=== PATIENT | male | born 1965 | race Caucasian/White ===

== ENCOUNTER 2022-05-31 15:01 | Emergency (ER) | payer OTHER, SELFPAY ==
--- NOTE | ~2022-05-31 | XR_ITS ---
EXAMINATION: XR FEMUR, LEFT CLINICAL INFORMATION: Recent fracture, increased weakness and discomfort. COMPARISON: None TECHNIQUE: AP and lateral views of the left femur were obtained. FINDINGS: Intramedullary nail in the left femur with 2 distal horizontally oriented screws and 2 proximal obliquely oriented screws. No evidence of hardware failure. No periprosthetic fracture. No acute fracture or malalignment. Scattered vascular calcifications. Moderate degenerative osteophytes arthritis of the left hip. Mild to moderate tricompartmental degenerative osteoarthritis in the left knee. No joint effusion in the left knee. No unexpected radiopaque foreign bodies. XR/XR femur LT 2V IMPRESSION: 1. Intramedullary nail in the left femur without evidence of hardware failure or periprosthetic fracture. 2. No acute fracture or malalignment.
--- NOTE | ~2022-05-31 | US_ITS ---
EXAMINATION: US VENOUS ULTRASOUND WITH DOPPLER LOWER EXTREMITY, LEFT CLINICAL INFORMATION: Pain, weakness COMPARISON: None TECHNIQUE: Ultrasound of the deep veins is performed from the hip to the calf with compression sonography and color and pulse Doppler assessment. Spectral analysis with color-flow imaging is performed. FINDINGS: There is normal venous compression and respiratory variation and augmented flow. The visualized common femoral vein, superficial femoral vein, profunda femoral vein, popliteal vein, and the trifurcation region shows no evidence of deep venous thrombosis. There is no significant popliteal fossa cyst. . If the patient's symptoms persist, followup ultrasound in 5 days 7 days might be of value to exclude proximal propagation from a non-visualized calf vein. US/US venous duplex LE LT IMPRESSION: No DVT demonstrated in the left lower extremity.
[2022-05-31 16:01] VITALS: BP 139/91; PULSE 134; RESP 20; TEMP 37.1; O2SAT 97; BMI 19.8
--- NOTE | 2022-05-31 16:01 | ED.EXTPRO ---
HPI - Extremity Problem General Chief complaint: Extremity Injury, Lower <Xena Hernandez CNP - Last Filed: 05/31/22 17:28> Stated complaint: l leg issue difficulty walking <Xena Hernandez CNP - Last Filed: 05/31/22 17:28> Time Seen by Provider: 05/31/22 21:17 <Xena Hernandez CNP - Last Filed: 05/31/22 17:28> Source: patient <Cookie Markham MD - Last Filed: 05/31/22 22:06> Mode of arrival: ambulatory <Cookie Markham MD - Last Filed: 05/31/22 22:06> History of Present Illness HPI Narrative: 57-year-old male with a history of left femur fracture that occurred approximately 6 months ago and now over the past 2-3 days states that he has been having some difficulty on ambulation with his cane which he uses at baseline. He denies any associated fever, chills. <Cookie Markham MD - Last Filed: 05/31/22 22:06> Related Data Allergies/Adverse reactions: Allergies Allergy/AdvReac Type Severity Reaction Status Date / Time No Known Allergies Allergy Verified 05/31/22 16:08 <Xena Hernandez CNP - Last Filed: 05/31/22 17:28> Review of Systems Review of Systems: Pertinent positives and negatives as stated in HPI <Cookie Markham MD - Last Filed: 05/31/22 22:06> PMFSH Past Medical History Source: nursing notes reviewed <Cookie Markham MD - Last Filed: 05/31/22 22:06> Medical History: Medical History Broken femur <Xena Hernandez CNP - Last Filed: 05/31/22 17:28> Social History Social History: Social History Alcohol intake: current Alcohol intake frequency: a few times a week Alcohol type: beer Smoked in Last 30 Days: Yes Use of substances other than those prescribed or required for medical reasons: No Advance Directives: No Advance Directives Information Provided: No <Xena Hernandez CNP - Last Filed: 05/31/22 17:28> Physical Exam Vital Signs: Vital Signs: Last Vital Signs Temp 98.6 F 05/31/22 20:00 Pulse 98 05/31/22 20:00 Resp 16 05/31/22 20:00 BP 134/80 05/31/22 20:00 Pulse Ox 97 05/31/22 20:00 O2 Del Method 05/31/22 20:00 BMI result Body Mass Index 19.8 <Xena HernandezMICHELLE - Last Filed: 05/31/22 17:28> Vital Signs: Last Vital Signs Temp 98.6 F 05/31/22 20:00 Pulse 98 05/31/22 20:00 Resp 16 05/31/22 20:00 BP 134/80 05/31/22 20:00 Pulse Ox 97 05/31/22 20:00 O2 Del Method 05/31/22 20:00 BMI result Body Mass Index 19.8 VITAL SIGNS: Reviewed. GENERAL: Well developed, well nourished, in no acute distress. HEAD: Normocephalic/atraumatic EYES: PERRLA, EOMI LUNGS: Normal breath sounds. No adventitious sounds or accessory muscle use. SpO2<97> CARDIOVASCULAR: Regular rate and rhythm without noted murmurs ABDOMEN: Soft, non-tender, non-distended with bowel sounds. MUSCULOSKELETAL: No tenderness, deformities, or effusions noted on gross inspection. EXTREMITIES: No cyanosis, clubbing or edema. LLE: No erythema, no induration, no swelling, neurovascularly intact distal SKIN: Inspection of the skin reveals no rashes NEUROLOGIC: Alert and oriented x 4. Strength and sensation to light touch were grossly intact x 4. <Cookie Markham MD - Last Filed: 05/31/22 22:06> Course Course Course Narrative: This is an RME: Additional HPI, ROS, PE not included below will be deferred to primary provider. Reports over the past 2 days he has been having increasing weakness to the leg, shakiness, unsteady gait, feeling like the leg is going to give out, despite the use of a cane. He states that his leg feels uncomfortable, but is not particularly painful. He denies any recent injury or fall. Reports a femur fracture approximately 6 months ago requiring surgical repair which at [facility] after mechanical slip and fall on the ice. He states he was able to begin walking on it again approximately 2 months ago. Denies any chest pain, shortness of breath, dizziness, swelling to the leg, redness. Denies any anxiety. Denies daily EtOH usage. Denies hx DVt/PE, AC usage. PE: Tachycardic, 130s. 2+ DP/PT pulse bilaterally, no edema, no erythema Plan: Labs, EKG, D-dimer, XR imaging. 1730: XR no acute abnormalities, D-dimer elevated, will ovtain venous duplex US exlude DVT given symptoms and tachycardia <Xena Hernandez CNP - Last Filed: 05/31/22 17:28> Medical Decision Making Medical Decision Making MDM Narrative: 57-year-old male with difficulty with his left lower extremity and on review of all investigations my interpretation is that there is no evidence of acute infection at although there is an elevated D-dimer the venous duplex is without acute findings. There is no evidence of cellulitis or thrombophlebitis. I have noted patient's platelet count, however on my examination there was no evidence of petechiae or purpura. In addition, on initial presentation patient was noted to be tachycardic but otherwise hemodynamically stable with good oxygenation and tachycardia has completely resolved. <Cookie Markham MD - Last Filed: 05/31/22 22:06> Differential Diagnosis Please see the discussion above <Cookie Markham MD - Last Filed: 05/31/22 22:06> Lab Data Please see the discussion above <Cookie Markham MD - Last Filed: 05/31/22 22:06> Result Diagrams: 05/31/22 17:04 05/31/22 17:04 <Xena Hernandez CNP - Last Filed: 05/31/22 17:28> Labs: Lab Results 05/31/22 05/31/22 05/31/22 Range/Units 17:04 17:04 17:04 WBC 6.8 (4.8-10.8) X10*3/uL RBC 4.75 (4.60-5.80) X10*6/uL Hgb 14.7 (14.0-18.0) g/dl Hct 43.4 (42.0-52.0) % MCV 91.4 (80.0-98.0) fL MCH 30.9 (27.0-33.0) pg MCHC 33.9 (31.0-36.0) g/dl RDW 14.8 (11.0-16.0) % Plt Count 67 L (160-400) X10*3/uL MPV 10.4 (9.4-12.4) fL Immature Gran % (Auto) 0.3 (0.0-0.4) % Neut % (Auto) 69.9 (45-73) % Lymph % (Auto) 24.2 (20-40) % [place] % (Auto) 4.2 (2-11) % Eos % (Auto) 0.7 (0-4) % Baso % (Auto) 0.7 (0-2) % Lymph # (Auto) 1.7 (1.2-4.9) X10*3/uL [place] # (Auto) 0.3 (0.1-1.2) X10*3/uL Eos # (Auto) 0.1 (0.0-0.4) X10*3/uL Baso # (Auto) 0.1 (0.0-0.2) X10*3/uL Abs Immat Gran (auto) 0.02 (0.00-0.03) X10*3/uL Absolute Neuts (auto) 4.8 (2.0-8.3) x10*3/uL Absolute Nucleated RBC 0.000 (0.0-0.012) X10*3/uL Nucleated RBC % (auto) 0.0 (0.0-0.2) /100WBC Smear Tech's Comments VERIFIED D-Dimer High Sensitivty 273 NG/ML Sodium 139 (135-145) mmol/L Potassium 3.9 (3.3-5.1) mmol/L Chloride 105 (96-108) mmol/L Carbon Dioxide 20 L (22-29) mmol/L Anion Gap 18 (12-20) BUN 9 (9-16) mg/dL Creatinine 0.84 (0.5-1.4) mg/dL Estim Creat Clear Calc 81.8 Estimated GFR > 60 Random Glucose 102 (60-115) mg/dL Calcium 8.9 (8.4-10.2) mg/dL Total Bilirubin 0.4 (0.0-1.0) mg/dL AST 33 (5-37) U/L ALT 23 (0-40) U/L Alkaline Phosphatase 84 (39-117) U/L Troponin I High Sens (<3.5-35.0) ng/L Total Protein 8.2 H (6.5-8.0) g/dL Albumin 4.2 (3.5-5.0) g/dL 05/31/22 Range/Units 17:04 WBC (4.8-10.8) X10*3/uL RBC (4.60-5.80) X10*6/uL Hgb (14.0-18.0) g/dl Hct (42.0-52.0) % MCV (80.0-98.0) fL MCH (27.0-33.0) pg MCHC (31.0-36.0) g/dl RDW (11.0-16.0) % Plt Count (160-400) X10*3/uL MPV (9.4-12.4) fL Immature Gran % (Auto) (0.0-0.4) % Neut % (Auto) (45-73) % Lymph % (Auto) (20-40) % [place] % (Auto) (2-11) % Eos % (Auto) (0-4) % Baso % (Auto) (0-2) % Lymph # (Auto) (1.2-4.9) X10*3/uL [place] # (Auto) (0.1-1.2) X10*3/uL Eos # (Auto) (0.0-0.4) X10*3/uL Baso # (Auto) (0.0-0.2) X10*3/uL Abs Immat Gran (auto) (0.00-0.03) X10*3/uL Absolute Neuts (auto) (2.0-8.3) x10*3/uL Absolute Nucleated RBC (0.0-0.012) X10*3/uL Nucleated RBC % (auto) (0.0-0.2) /100WBC Smear Tech's Comments D-Dimer High Sensitivty NG/ML Sodium (135-145) mmol/L Potassium (3.3-5.1) mmol/L Chloride (96-108) mmol/L Carbon Dioxide (22-29) mmol/L Anion Gap (12-20) BUN (9-16) mg/dL Creatinine (0.5-1.4) mg/dL Estim Creat Clear Calc Estimated GFR Random Glucose (60-115) mg/dL Calcium (8.4-10.2) mg/dL Total Bilirubin (0.0-1.0) mg/dL AST (5-37) U/L ALT (0-40) U/L Alkaline Phosphatase (39-117) U/L Troponin I High Sens 4.6 (<3.5-35.0) ng/L Total Protein (6.5-8.0) g/dL Albumin (3.5-5.0) g/dL <Xena Hernandez, INVERFORM MACHINE OPERATOR - Last Filed: 05/31/22 17:28> Lab Results 05/31/22 05/31/22 05/31/22 Range/Units 17:04 17:04 17:04 WBC 6.8 (4.8-10.8) X10*3/uL RBC 4.75 (4.60-5.80) X10*6/uL Hgb 14.7 (14.0-18.0) g/dl Hct 43.4 (42.0-52.0) % MCV 91.4 (80.0-98.0) fL MCH 30.9 (27.0-33.0) pg MCHC 33.9 (31.0-36.0) g/dl RDW 14.8 (11.0-16.0) % Plt Count 67 L (160-400) X10*3/uL MPV 10.4 (9.4-12.4) fL Immature Gran % (Auto) 0.3 (0.0-0.4) % Neut % (Auto) 69.9 (45-73) % Lymph % (Auto) 24.2 (20-40) % [place] % (Auto) 4.2 (2-11) % Eos % (Auto) 0.7 (0-4) % Baso % (Auto) 0.7 (0-2) % Lymph # (Auto) 1.7 (1.2-4.9) X10*3/uL [place] # (Auto) 0.3 (0.1-1.2) X10*3/uL Eos # (Auto) 0.1 (0.0-0.4) X10*3/uL Baso # (Auto) 0.1 (0.0-0.2) X10*3/uL Abs Immat Gran (auto) 0.02 (0.00-0.03) X10*3/uL Absolute Neuts (auto) 4.8 (2.0-8.3) x10*3/uL Absolute Nucleated RBC 0.000 (0.0-0.012) X10*3/uL Nucleated RBC % (auto) 0.0 (0.0-0.2) /100WBC Smear Tech's Comments VERIFIED D-Dimer High Sensitivty 273 NG/ML Sodium 139 (135-145) mmol/L Potassium 3.9 (3.3-5.1) mmol/L Chloride 105 (96-108) mmol/L Carbon Dioxide 20 L (22-29) mmol/L Anion Gap 18 (12-20) BUN 9 (9-16) mg/dL Creatinine 0.84 (0.5-1.4) mg/dL Estim Creat Clear Calc 81.8 Estimated GFR > 60 Random Glucose 102 (60-115) mg/dL Calcium 8.9 (8.4-10.2) mg/dL Total Bilirubin 0.4 (0.0-1.0) mg/dL AST 33 (5-37) U/L ALT 23 (0-40) U/L Alkaline Phosphatase 84 (39-117) U/L Troponin I High Sens (<3.5-35.0) ng/L Total Protein 8.2 H (6.5-8.0) g/dL Albumin 4.2 (3.5-5.0) g/dL 05/31/22 Range/Units 17:04 WBC (4.8-10.8) X10*3/uL RBC (4.60-5.80) X10*6/uL Hgb (14.0-18.0) g/dl Hct (42.0-52.0) % MCV (80.0-98.0) fL MCH (27.0-33.0) pg MCHC (31.0-36.0) g/dl RDW (11.0-16.0) % Plt Count (160-400) X10*3/uL MPV (9.4-12.4) fL Immature Gran % (Auto) (0.0-0.4) % Neut % (Auto) (45-73) % Lymph % (Auto) (20-40) % [place] % (Auto) (2-11) % Eos % (Auto) (0-4) % Baso % (Auto) (0-2) % Lymph # (Auto) (1.2-4.9) X10*3/uL [place] # (Auto) (0.1-1.2) X10*3/uL Eos # (Auto) (0.0-0.4) X10*3/uL Baso # (Auto) (0.0-0.2) X10*3/uL Abs Immat Gran (auto) (0.00-0.03) X10*3/uL Absolute Neuts (auto) (2.0-8.3) x10*3/uL Absolute Nucleated RBC (0.0-0.012) X10*3/uL Nucleated RBC % (auto) (0.0-0.2) /100WBC Smear Tech's Comments D-Dimer High Sensitivty NG/ML Sodium (135-145) mmol/L Potassium (3.3-5.1) mmol/L Chloride (96-108) mmol/L Carbon Dioxide (22-29) mmol/L Anion Gap (12-20) BUN (9-16) mg/dL Creatinine (0.5-1.4) mg/dL Estim Creat Clear Calc Estimated GFR Random Glucose (60-115) mg/dL Calcium (8.4-10.2) mg/dL Total Bilirubin (0.0-1.0) mg/dL AST (5-37) U/L ALT (0-40) U/L Alkaline Phosphatase (39-117) U/L Troponin I High Sens 4.6 (<3.5-35.0) ng/L Total Protein (6.5-8.0) g/dL Albumin (3.5-5.0) g/dL <Cookie Markham MD - Last Filed: 05/31/22 22:06> Independent Interpretation I performed an independent interpretation of an: EKG <Cookie Markham MD - Last Filed: 05/31/22 22:06> Interpretation: Sinus tachycardia, HR-128, no STEMI, Q-waves noted in inferior leads, [place]/QRS/QTC is within normal limits. <Cookie Markham MD - Last Filed: 05/31/22 22:06> Radiology Impression Radiologist Impression: In my interpretation is in agreement with radiology's impression of the imaging study <Cookie Markham MD - Last Filed: 05/31/22 22:06> Discharge Plan Discharge Clinical Impression: Leg pain <Xena Hernandez CNP - Last Filed: 05/31/22 17:28> Patient Disposition: Home, Self-Care <Xena Hernandez CNP - Last Filed: 05/31/22 17:28> Instructions: Leg Pain (ED) <Xena Hernandez CNP - Last Filed: 05/31/22 17:28> Additional Instructions: Please follow-up with your primary care provider <Xena Hernandez CNP - Last Filed: 05/31/22 17:28>
--- NOTE | 2022-05-31 16:09 | ECG_ITS ---
Test Reason : tachycardia Blood Pressure : / mmHG Vent. Rate : 128 BPM Atrial Rate : 128 BPM P-R Int : 114 ms QRS Dur : 092 ms QT Int : 298 ms P-R-T Axes : 045 -15 068 degrees QTc Int : 435 ms Sinus tachycardia Inferior infarct , age undetermined Cannot rule out Anterior infarct , age undetermined Abnormal ECG No previous ECGs available Referred By: Xena Hernandez Electronically Signed By:Felipe Armando
[2022-05-31 17:14] LABS: Hemoglobin 14.7 g/dl (14.0-18.0); Imm Gran Abs Auto 0.02 X10*3/uL (0.00-0.03); Imm Gran Pct Auto 0.3 % (0.0-0.4); MANUAL DIFF FLAG SCAN; Mean Corpuscular Volume 91.4 fL (80.0-98.0); PLT CLUMP 1; SCAN SMEAR FLAG 1
[2022-05-31 17:16] LABS: Basophils Absolute Auto 0.1 X10*3/uL (0.0-0.2); Basophils Percent Auto 0.7 % (0-2); Eosinophils Absolute Auto 0.1 X10*3/uL (0.0-0.4); Eosinophils Percent Auto 0.7 % (0-4); Hematocrit 43.4 % (42.0-52.0); Lymphocytes Absolute Auto 1.7 X10*3/uL (1.2-4.9); Lymphocytes Percent Auto 24.2 % (20-40); Mean Corpuscular HGB Conc 33.9 g/dl (31.0-36.0); Mean Corpuscular Hemoglobin 30.9 pg (27.0-33.0); Mean Platelet Volume 10.4 fL (9.4-12.4); Monocytes Absolute Auto 0.3 X10*3/uL (0.1-1.2); Monocytes Percent Auto 4.2 % (2-11); Neutrophils Absolute Auto 4.8 x10*3/uL (2.0-8.3); Neutrophils Percent Auto 69.9 % (45-73); Red Blood Count 4.75 X10*6/uL (4.60-5.80); Red Cell Distribution Width 14.8 % (11.0-16.0)
[2022-05-31 17:24] LABS: D Dimer High Sensitivity 273 NG/ML
[2022-05-31 17:35] LABS: Alanine Aminotransferase 23 U/L (0-40); Albumin Level 4.2 g/dL (3.5-5.0); Alkaline Phosphatase 84 U/L (39-117); Anion Gap 18 (12-20); Aspartate Amino Transferase 33 U/L (5-37); Bilirubin Total 0.4 mg/dL (0.0-1.0); Blood Urea Nitrogen 9 mg/dL (9-16); Calcium 8.9 mg/dL (8.4-10.2); Carbon Dioxide 20 mmol/L (22-29); Chloride 105 mmol/L (96-108); Creatinine Clr Calc Pharmacy 81.8; Estimated Glomerular Filt Rate > 60; Glucose Random 102 mg/dL (60-115); Potassium 3.9 mmol/L (3.3-5.1); Sodium 139 mmol/L (135-145); Total Protein 8.2 g/dL (6.5-8.0)
[2022-05-31 17:42] LABS: Troponin-I High Sensitivity 4.6 ng/L (<3.5-35.0)
[2022-05-31 17:47] LABS: White Blood Count 6.8 X10*3/uL (4.8-10.8)
[2022-05-31 17:48] LABS: Platelet Count 67 X10*3/uL (160-400); SLIDE REVIEW VERIFIED
[2022-05-31 20:00] VITALS: BP 134/80; PULSE 98; RESP 16; TEMP 37; O2SAT 97
--- NOTE | 2022-05-31 21:17 | PC.NURSE ---
assumed care of pt at 2100, pt resting quietly, pending ED provider.
== END 2022-05-31 22:13 | disposition home or self-care (01) ==
PROVIDERS: Nurse Practitioner Family; Emergency Provider Student in an Organized Health Care Education/Training Program
DX: M79.605 Pain in left leg (principal); R26.2 Difficulty in walking, not elsewhere classified; R00.0 Tachycardia, unspecified
CPT/HCPCS: 36415; 73552; 80053; 84484; 85025; 85379; 93005; 93971; 99284; 99285